=== PATIENT | male | born 1965 | race Caucasian/White ===

== ENCOUNTER 2021-11-25 09:33 | Outpatient (CLI) | payer OTHER, SELFPAY ==
[2021-11-25 19:16] LABS: Basophils Absolute Auto 0.1 K/mm3 (0.0-0.1); Basophils Percent Auto 0.9 % (0.2-1.2); Eosinophils Absolute Auto 0.3 K/mm3 (0-0.3); Hematocrit 48.4 % (42.0-52.0); Hemoglobin 15.5 g/dL (14.0-18.0); Immature Granulocyte Percent A 0.9 % (0-0.5); Lymphocytes Absolute Auto 2.25 K/mm3 (0.9-3.2); Lymphocytes Percent Auto 20.7 % (18.3-44.2); Mean Corpuscular Hemoglobin 30.9 pg (26-34); Mean Corpuscular Volume 96.6 fl (80-100); Mean Platelet Volume 11.3 fl (7.4-10.4); Monocytes Absolute Auto 0.9 K/mm3 (0.1-0.6); Monocytes Percent Auto 8.5 % (2.6-8.5); Neutrophils Absolute Auto 7.2 K/mm3 (1.3-6.7); Platelet Count Result 313 k/mm3 (150-375); Red Blood Count 5.01 M/mm3 (4.6-6.20); Red Cell Distribution Width 13.1 % (11.5-14.5); White Blood Count 10.9 K/mm3 (4.5-10.0)
[2021-11-25 19:32] LABS: Alanine Aminotransferase 38 U/L (6-50); Albumin Level 4.3 g/dL (3.5-5.1); Alkaline Phosphatase 141 U/L (38-126); Anion Gap 11 mmol/L (8-16); Aspartate Amino Transferase 89 U/L (17-59); Bilirubin,Total 0.8 mg/dL (0.2-1.3); Blood Urea Nitrogen 39 mg/dL (9-20); Calcium 9.7 mg/dL (8.4-10.2); Carbon Dioxide 28 mmol/L (22-30); Chloride 95 mmol/L (98-107); Cholesterol 100 mg/dL (0-200); Estimated Glomerular Filt Rate 52; Glucose 344 mg/dL (65-110); HDL Direct 27 mg/dL; Potassium 4.2 mmol/L (3.4-5.0); Sodium 134 mmol/L (137-145); Triglycerides 180 mg/dL (<150)
[2021-11-25 19:57] LABS: Creatinine Urine 69.6 mg/dL
[2021-11-25 19:59] LABS: Microalbumin Urine Random 12.5 mg/L (0-16.7)
[2021-11-25 20:00] LABS: Prostate Specific Antigen 0.5 ng/mL (< OR = 4.0)
[2021-11-25 20:13] LABS: Hemoglobin A1C 11.4 % (<5.7)
[2021-11-25 20:35] LABS: LDL Cholesterol Direct < 30 mg/dL
== END 2021-11-25 09:34 | disposition home or self-care (01) ==
PROVIDERS: PCP Family Medicine; Visit Provider Family Medicine
DX: Z12.5 Encounter for screening for malignant neoplasm of prostate (principal); E11.9 Type 2 diabetes mellitus without complications; Z00.00 Encounter for general adult medical examination without abnormal findings
CPT/HCPCS: 36415; 80053; 80061; 82043; 83036; 84153; 85025; G0103

== ENCOUNTER 2021-12-08 10:41 | Outpatient (CLI) | payer OTHER, SELFPAY | END 2021-12-08 10:42 | disposition home or self-care (01) | LOC: ANHBWCAUD 10:42 | PROVIDERS: PCP Family Medicine; Visit Provider Family Medicine | DX: H90.3 Sensorineural hearing loss, bilateral (principal) | CPT/HCPCS: 92557; 92567 ==

== ENCOUNTER 2022-03-01 10:09 | Outpatient (CLI) | payer OTHER, SELFPAY ==
[2022-03-01 18:51] LABS: Alanine Aminotransferase 28 U/L (6-50); Albumin Level 4.2 g/dL (3.5-5.1); Alkaline Phosphatase 89 U/L (38-126); Anion Gap 13 mmol/L (8-16); Aspartate Amino Transferase 76 U/L (17-59); Bilirubin,Total 0.8 mg/dL (0.2-1.3); Blood Urea Nitrogen 23 mg/dL (9-20); Calcium 9.2 mg/dL (8.4-10.2); Carbon Dioxide 29 mmol/L (22-30); Chloride 103 mmol/L (98-107); Estimated Glomerular Filt Rate > 60; Glucose 182 mg/dL (65-110); Potassium 4.2 mmol/L (3.4-5.0); Sodium 145 mmol/L (137-145)
[2022-03-01 18:58] LABS: Hemoglobin A1C 8.2 % (<5.7)
[2022-03-01 19:13] LABS: Creatinine Urine 76.6 mg/dL
[2022-03-01 19:17] LABS: MALB Creatinine Ratio 31.3 mg/g (0-30)
[2022-03-01 19:49] LABS: Hepatitis B Surface Antigen Negative (Negative)
[2022-03-01 19:55] LABS: HAV RESULT Negative (Negative); Hepatitis B Core IgM Result Negative (Negative)
[2022-03-01 20:06] LABS: Hepatitis C Virus Antibody Negative (Negative)
== END 2022-03-01 10:10 | disposition home or self-care (01) ==
PROVIDERS: PCP Family Medicine; Visit Provider Family Medicine
DX: E11.9 Type 2 diabetes mellitus without complications (principal); R74.8 Abnormal levels of other serum enzymes
CPT/HCPCS: 36415; 80048; 80074; 80076; 82043; 83036

== ENCOUNTER 2022-06-02 09:02 | Outpatient (CLI) | payer OTHER, SELFPAY ==
--- NOTE | ~2022-06-02 | XR_ITS ---
XR shoulder LT min 2V 06/02/2022 09:26 Indication: Left shoulder pain Procedure: 4 views left shoulder Comparison: No prior studies for comparison. Findings: There is mild osteoarthritis of the left shoulder. Normal mineralization. No fracture or tr aumatic malalignment. No significant soft tissue abnormality. No foreign bodies. Impression: 1: Mild polyarticular osteoarthritis of the left shoulder. Reviewed, dictated and finalized at location A. [facility] PLANNING DIRECTOR Impression: 1: Mild polyarticular osteoarthritis of the left shoulder.
[2022-06-02 20:51] LABS: Creatinine Urine 101.2 mg/dL
[2022-06-02 20:54] LABS: MALB Creatinine Ratio 47.2 mg/g (0-30); Microalbumin Urine Random 47.8 mg/L (0-16.7)
[2022-06-02 21:10] LABS: Alanine Aminotransferase 31 U/L (6-50); Albumin Level 4.5 g/dL (3.5-5.1); Alkaline Phosphatase 105 U/L (38-126); Anion Gap 7 mmol/L (8-16); Aspartate Amino Transferase 77 U/L (17-59); Bilirubin,Total 0.7 mg/dL (0.2-1.3); Blood Urea Nitrogen 26 mg/dL (9-20); Calcium 9.2 mg/dL (8.4-10.2); Carbon Dioxide 29 mmol/L (22-30); Chloride 101 mmol/L (98-107); Estimated Glomerular Filt Rate 57; Glucose 160 mg/dL (65-110); Potassium 4.1 mmol/L (3.4-5.0); Sodium 137 mmol/L (137-145)
== END 2022-06-02 09:03 | disposition home or self-care (01) ==
LOC: ANHBWCLAB 09:03
PROVIDERS: PCP Family Medicine; Visit Provider Family Medicine
DX: E11.9 Type 2 diabetes mellitus without complications (principal); M19.012 Primary osteoarthritis, left shoulder
CPT/HCPCS: 36415; 73030; 80053; 82043; 83036

== ENCOUNTER 2022-08-30 09:43 | Outpatient (CLI) | payer OTHER, SELFPAY ==
[2022-08-30 22:08] LABS: Alanine Aminotransferase 37 U/L (6-50); Albumin Level 4.3 g/dL (3.5-5.1); Alkaline Phosphatase 120 U/L (38-126); Anion Gap 8 mmol/L (8-16); Aspartate Amino Transferase 45 U/L (17-59); Bilirubin,Total 0.7 mg/dL (0.2-1.3); Blood Urea Nitrogen 25 mg/dL (9-20); Calcium 9.2 mg/dL (8.4-10.2); Carbon Dioxide 26 mmol/L (22-30); Chloride 107 mmol/L (98-107); Estimated Glomerular Filt Rate 57; Glucose 179 mg/dL (65-110); Potassium 4.3 mmol/L (3.4-5.0); Sodium 141 mmol/L (137-145)
[2022-08-30 23:37] LABS: Hemoglobin A1C 7.2 % (<5.7)
== END 2022-08-30 09:44 | disposition home or self-care (01) ==
LOC: ANHBWCLAB 09:43
PROVIDERS: PCP Family Medicine; Visit Provider Family Medicine
DX: E11.9 Type 2 diabetes mellitus without complications (principal)
CPT/HCPCS: 36415; 80053; 83036

== ENCOUNTER 2023-03-15 09:31 | Outpatient (CLI) | payer OTHER, SELFPAY ==
[2023-03-15 19:19] LABS: Alanine Aminotransferase 30 U/L (6-50); Albumin Level 4.4 g/dL (3.5-5.1); Alkaline Phosphatase 90 U/L (38-126); Anion Gap 12 mmol/L (8-16); Aspartate Amino Transferase 37 U/L (17-59); Bilirubin,Total 0.8 mg/dL (0.2-1.3); Blood Urea Nitrogen 31 mg/dL (9-20); Carbon Dioxide 25 mmol/L (22-30); Chloride 103 mmol/L (98-107); Cholesterol 121 mg/dL (0-200); Estimated Glomerular Filt Rate > 60; Glucose 219 mg/dL (65-110); HDL Direct 34 mg/dL; Potassium 4.6 mmol/L (3.4-5.0); Sodium 140 mmol/L (137-145); Triglycerides 133 mg/dL (<150)
[2023-03-15 19:30] LABS: LDL Cholesterol Direct 60 mg/dL
[2023-03-15 19:51] LABS: Prostate Specific Antigen 0.6 ng/mL (< OR = 4.0)
[2023-03-15 19:56] LABS: Hemoglobin A1C 7.5 % (<5.7)
[2023-03-15 20:26] LABS: Creatinine Urine 79.3 mg/dL
[2023-03-15 20:30] LABS: Microalbumin Urine Random 13.5 mg/L (0-16.7)
== END 2023-03-15 09:32 | disposition home or self-care (01) ==
LOC: ANHBWCLAB 09:32
PROVIDERS: PCP Nurse Practitioner Adult Health; Visit Provider Nurse Practitioner Adult Health
DX: E11.9 Type 2 diabetes mellitus without complications (principal); Z12.5 Encounter for screening for malignant neoplasm of prostate
CPT/HCPCS: 36415; 80053; 80061; 82043; 83036; 84153; G0103

== ENCOUNTER 2025-01-02 09:43 | Outpatient (CLI) | payer OTHER, SELFPAY ==
--- OUTSIDE RECORDS SUMMARY | 2025-01-02 10:40 | XMS_ITS | Clinical Summary ---
Author Organization [facility] Medical Office Building A Address [address] [place] [address] Care Team Providers Care Air Quality Chemist Name Role Phone Unavailable Primary Care Provider Unavailabl e Allergies No known active allergies Medications lancets (ONETOUCH DELICA LANCETS) 33 gauge misc test once daily 90 each 3 10/30/2014 Active blood-glucose meter (ONETOUCH VERIO SYSTEM) misc test once daily 1 each 0 10/30/2014 Active flash glucose sensor (FREESTYLE MIGUEL 14 DAY SENSOR) kit Test blood sugars for the 8 times daily 1 kit 3 08/31/2018 Active ONETOUCH VERIO strip TEST ONCE DAILY 100 each 3 10/06/2018 Active aspirin 81 mg enteric coated tablet Take 81 mg by mouth daily Active lisinopril-hydro CHLOROthiazide (ZESTORETIC) 10-12.5 mg per tabletIndication s:hypertension TAKE 1 TABLET BY MOUTH DAILY 30 tablet 11 01/19/2021 Active TOUJEO 300 unit/mL (1.5 mL) pen for injection INJECT 20 UNITS UNDER THE SKIN DAILY AFTER DINNER 4.5 mL 05/25/2021 Active Jardiance 25 mg tablet TAKE ONE (1) TABLET (25 MG TOTAL) BY MOUTH DAILY 30 tablet 3 07/28/2021 Active metFORMIN XR (GLUCOPHAGE XR) 750 mg 24 hr tablet TAKE ONE TABLET BY MOUTH TWO TIMES a DAY 60 tablet 11 08/16/2021 Active atorvastatin (LIPITOR) 20 mg tablet TAKE ONE TABLET BY MOUTH DAILY 30 tablet 1 09/15/2021 Active Active Problems Problem Noted Date Diagnosed Date Hx of colonic polyps 09/07/2019 Overview (09/07/2019): Added automatically from request for surgery [id number] History of left heart catheterization 07/31/2019 Hyperlipidemia associated with type 2 diabetes m ellitus 01/15/2019 Hypertension associated with diabetes 01/15/2019 Mitral valve prolapse 01/15/2019 Family history of premature coronary artery dise ase 01/15/2019 Mixed hyperlipidemia 01/14/2017 Essential hypertension 01/14/2017 Type 2 diabetes mellitus 09/01/2013 Overview (07/23/2016): DMII WO CMP NT ST UNCNTR Resolved Problems Problem Noted Date Diagnosed Date Resolved Date Equivocal stress test 01/15/20192019 Chest pain 01/15/2019 07/31/2019 Abnormal cardiovascular stress test 01/15/2019 07/31/2019 Overview (01/15/2019): Added automatically from request for surgery [id number] Pain in shoulder 04/05/2016 07/31/2019 Benign hypertension 09/01/2013 01/15/20 17 Overview (07/21/2016): BENIGN HYPERTENSION Immunizations Immunization Administration Dates Next Due Influenza, Quadrivalent, Lorena l Culture-based MDCK, Antibiotic Free, Intramuscular 02/15/2019 Influenza, Quadrivalent, Spl it, Preservative Free, Intramuscular 02/12/2018,12/31/2015 Influenza, Trivalent, IM (MDV) 12/30/2016,2013,02/21/2009 Influenza, Unspecified 01/09/2020,2019(Deferred: Patient Refused),02/15/2019,12/01/2018(Deferre d: Patient Refused),12/29/2016 Moderna SARS-CoV-2 Monovalen t Vaccination (12+ YRS) 07/14/2020,06/15/2020 Pneumococcal Conjugate PCV 13 10/01/2014 Pneumococcal Polysaccharide PPV23 04/29/2020,09/2008 ZOSTER Recombinant 01/12/2019,10/06/2018 Surgical History Surgery Date Site/Laterality Comments APPENDECTOMY 04/18/1992 - 04/17/1993 Appendectomy UMBILICAL HERNIA REPAIR Hernia repair, umbilical COLONOSCOPY 10/16/2014 - 11/15/2014 Medical History Medical History Date Comments Hypercholesterolemia High choles terol; Comments: JDR 10/02/2014 - Type 2 diabetes mellitus Diabete s type 2; Comments: JDR 10/02/2014 - Colon polyp Hypertension Family History Medical History Relation Name Comments Hypertension Father 2 Hypertension; Other Mother 2 Alive and well; Relation Name Status Comments Father 1 Alive Father 2 Mother 1 Alive Mother 2 Social History Tobacco Use Types Packs/Day Years Used Date Smoking Tobacco: Never Smokeless Tobacco: Never Alcohol Use Standard Drinks/Week Comments No 0 (1 standard drink = 0.6 oz pur e alcohol) PHQ-2 Answer Date Recorded PHQ-2 Total Score (If total score is 3 or more points, staff should administer the PHQ-9) 0 04/29/2020 Sex and Gender Information Value Date Recorded Sex Assigned at Not on file Legal Sex Male 11:55 PM JEWELRY RACKER Gender Identity Not on file Sexual Orientation Not on file Obstetrics History Last Filed Vital Signs Vital Sign Reading Time Taken Comments Blood Pressure 120/72 04/29/2020 8:01 AM JEWELRY RACKER Pulse 60 04/29/2020 8:01 AM JEWELRY RACKER Temperature 37.1 C (98.7 F) 09/20/2019 8:45 AM CDT Respiratory Rate 20 04/29/2020 8:01 AM JEWELRY RACKER Oxygen Saturation 100% 09/20/2019 8:45 AM CDT Inhaled Oxygen Concentration - - Weight 95.3 kg (210 lb) 01/15/2021 9:50 AM CDT Height 185.4 cm (6' 1) 01/15/2021 9:50 AM CDT Body Mass Index 27.71 01/15/2021 9:50 AM CDT Plan of Treatment Not on file Medical Devices Implanted Type Area Manufacturing Engineer Paint Device Identifier Shelf Expiration Date Model / Serial / Lot Kontron [id number] Device Closure Angio-Seal Vip Bondek-Plus Polyglyd L70 Cm Od6 Fr Odsec.035 In Vascular - [id number] Implanted:Qty: 1 on 01/18/2019 by Thomas Rosenthal MD at [facility] [employer] [id number] / / Insurance [facility] CHOICE PLUS [facility] HMO/PPO Address: [address] [address] [place] [address] [id number] [place] [address] [facility] [facility] HMO/PPO Address: [address] [address] [place] [address] Advance Directives For more information, please contact: [phone] * Full Code (Latest Code Status on File) Date Activated Date Inactivated Comments 09/20/2019 7:16 AM 09/20/2019 1:01 PM * Full Code Date Activated Date Inactivated Comments 09/20/2019 7:16 AM 09/20/2019 7:16 AM
== END 2025-01-02 09:44 | disposition home or self-care (01) ==
LOC: ANHBWCAUD 09:44
PROVIDERS: PCP Nurse Practitioner Adult Health; Visit Provider Otolaryngology
DX: H90.3 Sensorineural hearing loss, bilateral (principal); H74.8X1 Other specified disorders of right middle ear and mastoid; H93.13 Tinnitus, bilateral
CPT/HCPCS: 92557; 92567

== ENCOUNTER 2025-03-11 07:39 | Outpatient (CLI) | payer OTHER, SELFPAY ==
--- OUTSIDE RECORDS SUMMARY | 2025-03-11 07:47 | XMS_ITS | Clinical Summary ---
Author Organization [facility] Medical Office Building A Address [address] [place] [address] Care Team Providers Care Parts Identifier Name Role Phone Unavailable Primary Care Provider [...] (09/07/2019): Added automatically from request for surgery [id number] History of left heart catheterization 07/31/2019 Hyperlipidemia [...] (01/15/2019): Added automatically from request for surgery [id number] Pain in shoulder 04/05/2016 07/31/2019 Benign hypertension [...] on file Legal Sex Male 11:55 PM MINE GEOLOGIST Gender Identity Not on file Sexual Orientation Not on file Last Filed Vital Signs Vital Sign Reading Time Taken Comments Blood Pressure 120/72 04/29/2020 8:01 AM MINE GEOLOGIST Pulse 60 04/29/2020 8:01 AM MINE GEOLOGIST Temperature 37.1 C (98.7 F) 09/20/2019 8:45 AM CDT Respiratory Rate 20 04/29/2020 8:01 AM MINE GEOLOGIST Oxygen Saturation 100% 09/20/2019 8:45 AM CDT Inhaled Oxygen Concentration - - Weight 95.3 kg (210 lb) 01/15/2021 9:50 AM CDT Height 185.4 cm (6' 1) 01/15/2021 9:50 AM CDT Body Mass Index 27.71 01/15/2021 9:50 AM CDT Plan of Treatment Not on file Medical Devices Implanted Type Area Computer Typesetter Device Identifier Shelf Expiration Date Model / Serial / Lot PFSweb [id number] Device Closure Angio-Seal Vip Bondek-Plus Polyglyd L70 Cm Od6 Fr Odsec.035 In Vascular - [id number] Implanted:Qty: 1 on 01/18/2019 by Thomas Rosenthal MD at [facility] [employer] [id number] / / Insurance [facility] CHOICE PLUS [id number] [place] [address] CHOICE PLUS [place] [id number] Advance Directives For more information, please contact: [phone] * Full Code (Latest Code Status on File) Date Activated Date Inactivated Comments 09/20/2019 7:16 AM 09/20/2019 1:01 PM * Full Code Date Activated Date Inactivated Comments 09/20/2019 7:16 AM 09/20/2019 7:16 AM
[2025-03-11 19:00] LABS: Alanine Aminotransferase 30 U/L (6-50); Albumin Level 4.2 g/dL (3.5-5.1); Alkaline Phosphatase 116 U/L (38-126); Anion Gap 8 mmol/L (4-12); Aspartate Amino Transferase 74 U/L (17-59); Bilirubin,Total 0.7 mg/dL (0.2-1.3); Blood Urea Nitrogen 40 mg/dL (9-20); Calcium 9.8 mg/dL (8.4-10.2); Carbon Dioxide 25 mmol/L (22-30); Chloride 103 mmol/L (98-107); Cholesterol 110 mg/dL (0-200); Estimated Glomerular Filt Rate 46; Glucose 220 mg/dL (65-110); HDL Direct 35 mg/dL; Potassium 5.1 mmol/L (3.4-5.0); Sodium 136 mmol/L (137-145); Total Protein 7.2 g/dL (6.3-8.2); Triglycerides 168 mg/dL (<150)
[2025-03-11 19:09] LABS: Hemoglobin A1C 8.4 % (<5.7)
[2025-03-11 19:22] LABS: MALB Creatinine Ratio 20.0 mg/g (0-30)
[2025-03-11 19:37] LABS: Prostate Specific Antigen 0.7 ng/mL (< OR = 4.0)
== END 2025-03-11 07:40 | disposition home or self-care (01) ==
PROVIDERS: PCP Nurse Practitioner Adult Health; Visit Provider Nurse Practitioner Adult Health
DX: E11.9 Type 2 diabetes mellitus without complications (principal); Z12.5 Encounter for screening for malignant neoplasm of prostate
CPT/HCPCS: 36415; 80053; 80061; 82043; 82565; 83036; 84153; G0103

== ENCOUNTER 2025-03-15 10:35 | Emergency (ER) | payer OTHER, SELFPAY ==
--- OUTSIDE RECORDS SUMMARY | 2025-03-15 10:38 | XMS_ITS | Clinical Summary ---
Author Organization [facility] Medical Office Building A Address [address] [place] [address] Care Team Providers Care Stocking Inspector Name Role Phone Unavailable Primary Care Provider [...] (09/07/2019): Added automatically from request for surgery [id number] History of left heart catheterization 07/31/2019 Hyperlipidemia [...] (01/15/2019): Added automatically from request for surgery [id number] Pain in shoulder 04/05/2016 07/31/2019 Benign hypertension [...] on file Legal Sex Male 11:55 PM ART PROFESSOR Gender Identity Not on file Sexual Orientation Not on file Last Filed Vital Signs Vital Sign Reading Time Taken Comments Blood Pressure 120/72 04/29/2020 8:01 AM ART PROFESSOR Pulse 60 04/29/2020 8:01 AM ART PROFESSOR Temperature 37.1 C (98.7 F) 09/20/2019 8:45 AM CDT Respiratory Rate 20 04/29/2020 8:01 AM ART PROFESSOR Oxygen Saturation 100% 09/20/2019 8:45 AM CDT Inhaled Oxygen Concentration - - Weight 95.3 kg (210 lb) 01/15/2021 9:50 AM CDT Height 185.4 cm (6' 1) 01/15/2021 9:50 AM CDT Body Mass Index 27.71 01/15/2021 9:50 AM CDT Plan of Treatment Not on file Medical Devices Implanted Type Area Account Resolution Expert Device Identifier Shelf Expiration Date Model / Serial / Lot [employer] [id number] Device Closure Angio-Seal Vip Bondek-Plus Polyglyd L70 Cm Od6 Fr Odsec.035 In Vascular - [id number] Implanted:Qty: 1 on 01/18/2019 by Thomas Rosenthal MD at [facility] [employer] [id number] / / Insurance [facility] CHOICE PLUS [facility] HMO/PPO Address: [address] [address] [place] [address] [id number] [place] [address] CHOICE PLUS [facility] HMO/PPO Address: [address] [address] [place] [phone] Advance Directives For more information, please contact: [phone] * Full Code (Latest Code Status on File) Date Activated Date Inactivated Comments 09/20/2019 7:16 AM 09/20/2019 1:01 PM * Full Code Date Activated Date Inactivated Comments 09/20/2019 7:16 AM 09/20/2019 7:16 AM
[2025-03-15 10:44] VITALS: BP 91/54; PULSE 107; RESP 16; TEMP 36.2; O2SAT 100
--- NOTE | 2025-03-15 11:17 | ED.LOWEXIN ---
HPI - Extremity Injury (Lower) General Chief Complaint: Extremity Injury, Lower Stated Complaint: left foot Time Seen by Provider: 03/15/25 11:18 Source: patient Mode of arrival: ambulatory Limitations: no limitations History of Present Illness HPI Narrative: 59 yo M presents with c/o pain to bottom of L foot, bodyaches and fatigue. Has callus of L foot scrapped by podiatry. Has been watching area on foot due to slow healing. Concerned for infection. Podiatry office not open today. All systems reviewed and negatve except as noted above. Related Data Allergies Allergy/AdvReac Type Severity Reaction Status Date / Time No Known Drug Allergies Allergy Unknown Verified 03/12/25 13:19 [facility] Family History Family History Mother Diabetes mellitus Sibling Diabetes mellitus Hypertension Heart disease Grandparent Diabetes mellitus Social History Social History Smoking status: Never smoker Alcohol intake: never Lack of Transportation: No Lack of Food: Never True Current Housing: I Have Housing Concerned About Future Housing: No Difficulty Paying Gas/Electric Bills: No Difficulty Paying for Meds: No Currently Unemployed: No Education: High School Diploma/GED Difficulty w/ Childcare or Family Care: No Living arrangements: with family Occupation/Education: retired Gender identity (if verbalized by the patient): Male Agree to blood products: Yes Comments At time of signature, agree with nursing past medical, surgical, social and family history. There is no relevant family history pertinent to the presenting complaint. Exam Narrative: GENERAL: This is a well-nourished, well-developed patient, in no apparent distress. HEAD: normocephalic, atraumatic. EYES: PERRL. Sclera clear/white. Vision is grossly intact. EARS: External ears normal NOSE: External nose normal NECK: Neck supple, non-tender without lymphadenopathy, masses or thyromegaly. CARDIOVASCULAR: Regular rate and rhythm without murmurs, gallops, or rubs. RESPIRATORY: Clear to auscultation. Breath sounds equal bilaterally. No wheezes, rales, or rhonchi. SKIN: warm, Dry, intact with no suspicious lesions or rash, good texture and turgor. NEURO: awake, alert, and oriented to person, place and time. There were no obvious focal neurologic abnormalities. EXTREMITIES: No joint tenderness, effusion, or edema noted. abscess to plantar, lateral aspect L foot, draining. tender on palpation Course Course Level of Care: Express Care Visit Vital Signs Vital signs: Vital Signs Temperature 36.2 C L 03/15/25 10:44 Pulse Rate 107 H 03/15/25 10:44 Respiratory Rate 16 03/15/25 10:44 Blood Pressure 91/54 L 03/15/25 10:44 Pulse Oximetry 100 03/15/25 10:44 Oxygen Delivery Room Air 03/15/25 10:44 Temperature 36.2 C L 03/15/25 10:44 Pulse Rate 107 H 03/15/25 10:44 Respiratory Rate 16 03/15/25 10:44 Blood Pressure 91/54 L 03/15/25 10:44 Pulse Oximetry 100 03/15/25 10:44 Oxygen Delivery Room Air 03/15/25 10:44 Reviewed, BP rechecked by BALL SHAGGER 114/72 Procedures Other Procedure Procedure 1: Other Procedure: abscess to L foot cleaned, manually drained, culture obtained MDM - Extremity Injury (Lower) MDM Narrative Medical decision making narrative: will start clindamycin for L foot infection. Recommend follow up with podiatry. pt is well appearing, nontoxic. Discharge Plan Discharge Clinical Impression: Abscess of left foot Patient Disposition: Home Condition: Stable Instructions: Antibiotic Form, Abscess (ED) Additional Instructions: Take antibiotic as prescribed until gone. Follow up with rock crushing machine operator at next available appointment. For any worsening of symptoms go to the ER. Patient Language: Eritrean Prescriptions: New clindamycin HCl [Cleocin HCl] 300 mg capsule 300 mg PO QID 10 Days Qty: 40 0RF No Action (DME) blood-glucose meter Kit See Rx Instructions .Route Qty: 1 0RF Rx Instructions: As directed, three times a day (DME) OneTouch Verio test strips Strip See Rx Instructions .Route Qty: 300 11RF Rx Instructions: As directed, tid lisinopril-hydrochlorothiazide 10-12.5 mg tablet See Rx Instructions .ROUTE .COMPLEX Qty: 90 3RF Dose Instruction: TAKE ONE (1) TABLET BY MOUTH DAILY Rx Instructions: TAKE ONE (1) TABLET BY MOUTH DAILY metformin 750 mg tablet extended release 24 hr See Rx Instructions .ROUTE .COMPLEX Qty: 180 3RF Dose Instruction: TAKE ONE (1) TABLET BY MOUTH TWICE DAILY Rx Instructions: TAKE ONE (1) TABLET BY MOUTH TWICE DAILY atorvastatin 20 mg tablet See Rx Instructions .ROUTE .COMPLEX Qty: 90 3RF Dose Instruction: TAKE ONE (1) TABLET BY MOUTH DAILY Rx Instructions: TAKE ONE (1) TABLET BY MOUTH DAILY Ozempic 1 mg/dose (4 mg/3 mL) pen injector See Rx Instructions .ROUTE .COMPLEX Qty: 3 3RF Dose Instruction: 1 MG (0.75 ML) SUBCUTANEOUSLY WEEKLY Rx Instructions: 1 MG (0.75 ML) SUBCUTANEOUSLY WEEKLY Jardiance 25 mg tablet See Rx Instructions .ROUTE .COMPLEX Qty: 90 3RF Dose Instruction: TAKE ONE (1) TABLET BY MOUTH DAILY Rx Instructions: TAKE ONE (1) TABLET BY MOUTH DAILY Follow-up/Referrals: Olga Lidia Martin APRN [Primary Care Provider, Family Practice] Time of Disposition: 11:30
== END 2025-03-15 11:38 | disposition home or self-care (01) ==
PROVIDERS: Emergency Provider Nurse Practitioner Family; PCP Nurse Practitioner Adult Health
DX: L02.612 Cutaneous abscess of left foot (principal)
CPT/HCPCS: 87070; 87077; 87147; 87186; 87205; 99213; G0463

== ENCOUNTER 2025-04-06 10:05 | Emergency (ER) | payer OTHER, SELFPAY ==
--- OUTSIDE RECORDS SUMMARY | 2025-04-06 10:09 | XMS_ITS | Clinical Summary ---
Author Organization [facility] Medical Office Building A Address [address] [place] [address] Care Team Providers Care Customer Engagement Analyst Name Role Phone Unavailable Primary Care Provider [...] (09/07/2019): Added automatically from request for surgery [id number] History of left heart catheterization 07/31/2019 Hyperlipidemia [...] (01/15/2019): Added automatically from request for surgery [id number] Pain in shoulder 04/05/2016 07/31/2019 Benign hypertension [...] on file Legal Sex Male 11:55 PM CUSTOMER SUPPORT COORDINATOR Gender Identity Not on file Sexual Orientation Not on file Last Filed Vital Signs Vital Sign Reading Time Taken Comments Blood Pressure 120/72 04/29/2020 8:01 AM CUSTOMER SUPPORT COORDINATOR Pulse 60 04/29/2020 8:01 AM CUSTOMER SUPPORT COORDINATOR Temperature 37.1 C (98.7 F) 09/20/2019 8:45 AM CDT Respiratory Rate 20 04/29/2020 8:01 AM CUSTOMER SUPPORT COORDINATOR Oxygen Saturation 100% 09/20/2019 8:45 AM CDT Inhaled Oxygen Concentration - - Weight 95.3 kg (210 lb) 01/15/2021 9:50 AM CDT Height 185.4 cm (6' 1) 01/15/2021 9:50 AM CDT Body Mass Index 27.71 01/15/2021 9:50 AM CDT Plan of Treatment Not on file Medical Devices Implanted Type Area Freight Separator Device Identifier Shelf Expiration Date Model / Serial / Lot [employer] [id number] Device Closure Angio-Seal Vip Bondek-Plus Polyglyd L70 Cm Od6 Fr Odsec.035 In Vascular - [id number] Implanted:Qty: 1 on 01/18/2019 by Thomas Rosenthal MD at [facility] [employer] [id number] / / Insurance [facility] CHOICE PLUS [facility] HMO/PPO Address: [address] [address] [place] [address] [phone] [place] [address] CHOICE PLUS [facility] HMO/PPO Address: [address] [address] [place] [id number] Advance Directives For more information, please contact: [phone] * Full Code (Latest Code Status on File) Date Activated Date Inactivated Comments 09/20/2019 7:16 AM 09/20/2019 1:01 PM * Full Code Date Activated Date Inactivated Comments 09/20/2019 7:16 AM 09/20/2019 7:16 AM
[2025-04-06 10:13] VITALS: BP 128/69; PULSE 96; RESP 20; TEMP 36.3; O2SAT 100
--- NOTE | 2025-04-06 10:33 | ED.EXTPRO ---
HPI - Extremity Problem General Chief complaint: Extremity Problem,Nontraumatic Stated complaint: Left Foot Swelling Time Seen by Provider: 04/06/25 10:34 Source: patient, RN notes reviewed and old records reviewed Mode of arrival: ambulatory Limitations: no limitations History of Present Illness HPI Narrative: 59 year old male presents to [facility] care with complaints of left foot redness and swelling noted to left foot which he noted this morning. Patient was seen in the express care on the due to having callous on the bottom of his left foot lateral aspect that had been shaved by his concierge manager which was having some purulent drainage and was placed on Clindamycin which he completed. Patient reports that he had been putting a band aide on the callous area which quit draining about 5 days ago. He has scab area now on the lateral top of left foot which was from band aide with no open skin area or drainage. Patient reports no pain to his left foot or any fevers. MD Complaint: extremity swelling and other (swelling and red to the top of foot laterally) Onset (ago): day(s) (noted this morning) Severity scale (1-10): 3 Related Data Allergies Allergy/AdvReac Type Severity Reaction Status Date / Time No Known Drug Allergies Allergy Unknown Verified 04/06/25 10:31 Review of Systems Review of Systems: CONSTITUTIONAL: Denies fever, chills, or sweats. EYES: Denies visual changes, redness, or discharge. ENT: Denies rhinorrhea, congestion, sore throat, or otalgia. CARDIOVASCULAR: Denies chest pain, palpitations, or edema. RESPIRATORY: Denies cough or dyspnea. GASTROINTESTINAL: Denies abdominal pain, nausea, vomiting, or diarrhea. GENITOURINARY: Denies dysuria or hematuria. SKIN: Denies rash or itching.Patient has callous to the lateral aspect of his left foot plantar region that has not been draining for the past 5 days and scabbed are to dorsal lateral foot with no drainage, reports awoke this morning with his left foot red and with some swelling to lateral aspect of his left foot. Patient is diabetic does see concierge manager. MUSCULOSKELETAL: Denies back pain, joint pain, or myalgia. NEUROLOGIC: Denies headache, numbness, or weakness. PSYCHIATRIC: Denies anxiety or depression. All systems reviewed & are unremarkable except as noted in HPI and below PMFSH Past Medical History Medical History (Updated 04/08/25 @ 08:33 by Rosa Elena Wright APRN) Elevated serum cholesterol Type 2 diabetes mellitus HTN (hypertension) Family History Family History Mother Diabetes mellitus Sibling Diabetes mellitus Hypertension Heart disease Grandparent Diabetes mellitus Social History Social History Smoking status: Never smoker Alcohol intake: never Lack of Transportation: No Lack of Food: Never True Current Housing: I Have Housing Concerned About Future Housing: No Difficulty Paying Gas/Electric Bills: No Difficulty Paying for Meds: No Currently Unemployed: No Education: High School Diploma/GED Difficulty w/ Childcare or Family Care: No Living arrangements: with family Occupation/Education: retired Gender identity (if verbalized by the patient): Male Agree to blood products: Yes Comments At time of signature, agree with nursing past medical, surgical, social and family history. There is no relevant family history pertinent to the presenting complaint Exam Narrative: GENERAL: Well-appearing, well-nourished, and in no acute distress. HEAD: Normocephalic, atraumatic. EYES: PERRLA and EOMI. ENT: Nares clear, no rhinorrhea or epistaxis. Mucous membranes moist.TM's normal throat pink with no swelling or irritation NECK: Supple.no lymphadenopathy CHEST: Clear to auscultation. No respiratory distress. no cough or congestion SAO2 100% on room air HEART: Regular rate and rhythm. No murmur heard. Normal peripheral pulses. ABDOMEN: Soft, nontender, nondistended, normal active bowel sounds. EXTREMITIES: Normal range of motion. No edema. Exception noted to his left foot dorsal and lateral aspect which was noted to be red and swollen this morning. Patient received Clindamycin on 03/12/2025 for drainag callous to the lateral plantar aspect of his left foot which he completed with no drainage from site for 5 days, has scabbed area to dorsal lateral aspect of left foot from where he had band-devaughn coverage over callous with no drainage. Left dorsal lateral foot has some swelling and is red.denies any pain or any fevers No present drainage from callous area on plantar left lateral foot. SKIN: Warm, dry, no rash. NEURO: No focal deficits. Alert and oriented x3. Course Course Level of Care: Express Care Visit Vital Signs Vital signs: Vital Signs Temperature 36.3 C L 04/06/25 10:13 Pulse Rate 96 04/06/25 10:13 Respiratory Rate 20 04/06/25 10:13 Blood Pressure 128/69 04/06/25 10:13 Pulse Oximetry 100 04/06/25 10:13 Oxygen Delivery Room Air 04/06/25 10:13 Temperature 36.3 C L 04/06/25 10:13 Pulse Rate 96 04/06/25 10:13 Respiratory Rate 20 04/06/25 10:13 Blood Pressure 128/69 04/06/25 10:13 Pulse Oximetry 100 04/06/25 10:13 Oxygen Delivery Room Air 04/06/25 10:13 reviewed MDM MDM Narrative Medical decision making narrative: Patient awoke today with left foot red and swollen predominantly to the lateral aspect, Patient was treated on 03/12/2025 with Clindamycin for draining callous to the lateral plantar aspect of his left foot with no reported drainage from site for 5 days. now has small scabbed area to the dorsal lateral aspect of his left foot where patient states was from band-aide he had put over the callous with no drainage noted. Patient is appropriate for outpatient care and follow up with podiatry.Will treat with oral antibiotics wound care and Mupiricin ointment with no tape to skin Patient received anticipatory guidance and reasons to seek care in ED reviewed with patient voicing understanding. Differential Diagnosis Differential Diagnosis: Differential diagnostic considerations for skin/abscess/foreign body issues include abscess of skin or subcutaneous tissue, viral exanthem, dermatophytosis, urticaria, herpes zoster, allergic reaction to drug, cellulitis, eczema, insect bites, impetigo, contact dermatitis, vasculitis. Critical Care Time Critical Care Time Critical Care Time: No Discharge Plan Discharge Clinical Impression: Swelling of left foot, Erythema of foot Patient Disposition: Home Condition: Stable Instructions: Antibiotic Form, Foot Ulcers in a Person with Diabetes (ED) Additional Instructions: Soak left foot in warm soapy water rinse well and then apply Mupiricin ointment to callous and scab dorsal foot and cover with telfa and wrap with coban watch for increasing infection--redness, swelling, drainage Tylenol or Ibuprofen for any pain or fever follow up with PCP in 7-10 days for a wound check recheck if develop fever, chills, increasing symptom Go to the ER if your symptoms become worse of if ANY new symptoms develop Monitor for any fevers, chills or sweats Antibiotics as prescribed till completed Make follow up appointment for your concierge manager If your symptoms persist, change or worsen significantly before you can contact your personal physician then please, without delay, go to the emergency department for further evaluation. Follow-up with PCP in 7-10 days or sooner if needed Follow up with PCP soon in regards to your blood pressure which is elevated above threshold for referral. Blood pressure above 120/80 may indicate pre-hypertension. minimal systolic elevation 128/69 Patient Language: Russian Prescriptions: New cephalexin 500 mg capsule 500 mg PO Q8H Qty: 21 0RF Rx Instructions: take with food sulfamethoxazole-trimethoprim [Bactrim DS] 800-160 mg tablet 1 tablet PO Q12H Qty: 14 0RF mupirocin [Centany] 2 % ointment 1 applic topical BID Qty: 22 0RF Rx Instructions: left foot No Action (DME) blood-glucose meter Kit See Rx Instructions .Route Qty: 1 0RF Rx Instructions: As directed, three times a day (DME) OneTouch Verio test strips Strip See Rx Instructions .Route Qty: 300 11RF Rx Instructions: As directed, tid atorvastatin 20 mg tablet See Rx Instructions .ROUTE .COMPLEX Qty: 90 3RF Dose Instruction: TAKE ONE (1) TABLET BY MOUTH DAILY Rx Instructions: TAKE ONE (1) TABLET BY MOUTH DAILY Jardiance 25 mg tablet See Rx Instructions .ROUTE .COMPLEX Qty: 90 3RF Dose Instruction: TAKE ONE (1) TABLET BY MOUTH DAILY Rx Instructions: TAKE ONE (1) TABLET BY MOUTH DAILY lisinopril-hydrochlorothiazide 10-12.5 mg tablet See Rx Instructions .ROUTE .COMPLEX Qty: 90 3RF Dose Instruction: TAKE ONE (1) TABLET BY MOUTH DAILY Rx Instructions: TAKE ONE (1) TABLET BY MOUTH DAILY metformin 750 mg tablet extended release 24 hr See Rx Instructions .ROUTE .COMPLEX Qty: 180 3RF Dose Instruction: TAKE ONE (1) TABLET BY MOUTH TWICE DAILY Rx Instructions: TAKE ONE (1) TABLET BY MOUTH TWICE DAILY Ozempic 1 mg/dose (4 mg/3 mL) pen injector See Rx Instructions .ROUTE .COMPLEX Qty: 3 3RF Dose Instruction: 1 MG (0.75 ML) SUBCUTANEOUSLY WEEKLY Rx Instructions: 1 MG (0.75 ML) SUBCUTANEOUSLY WEEKLY Follow-up/Referrals: Olga Lidia Martin APRN [Primary Care Provider, [facility]] Time of Disposition: 10:58 Quality Bernadette Coma Scale Eyes: Open Verbal: Oriented and Alert Motor: Follows Commands Bernadette Coma Total Score: 15
== END 2025-04-06 11:09 | disposition home or self-care (01) ==
PROVIDERS: Emergency Provider Registered Nurse; PCP Nurse Practitioner Adult Health
DX: R22.42 Localized swelling, mass and lump, left lower limb (principal); L53.9 Erythematous condition, unspecified; E11.9 Type 2 diabetes mellitus without complications; Z79.84 Long term (current) use of oral hypoglycemic drugs; Z79.85 Long-term (current) use of injectable non-insulin antidiabetic drugs; I10 Essential (primary) hypertension; E78.00 Pure hypercholesterolemia, unspecified
CPT/HCPCS: 99213; G0463

== ENCOUNTER 2025-04-16 08:16 | Emergency (ER) | payer OTHER, SELFPAY ==
--- OUTSIDE RECORDS SUMMARY | 2025-04-16 08:22 | XMS_ITS | Clinical Summary ---
Author Organization [facility] Address [address] [place] [address] Care Team Providers Care Household Refrigeration Mechanic Name Role Phone Unavailable Primary Care Provider [...] (09/07/2019): Added automatically from request for surgery [id number] History of left heart catheterization 07/31/2019 Hyperlipidemia [...] (01/15/2019): Added automatically from request for surgery [id number] Pain in shoulder 04/05/2016 07/31/2019 Benign hypertension [...] on file Legal Sex Male 11:55 PM [employer] Gender Identity Not on file Sexual Orientation Not on file Last Filed Vital Signs Vital Sign Reading Time Taken Comments Blood Pressure 120/72 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 Pulse 60 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 Temperature 37.1 C (98.7 F) 09/20/2019 8:45 AM CDT Respiratory Rate 20 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 Oxygen Saturation 100% 09/20/2019 8:45 AM CDT Inhaled Oxygen Concentration - - Weight 95.3 kg (210 lb) 01/15/2021 9:50 AM CDT Height 185.4 cm (6' 1) 01/15/2021 9:50 AM CDT Body Mass Index 27.71 01/15/2021 9:50 AM CDT Plan of Treatment Not on file Medical Devices Implanted Type Area Road Monkey Device Identifier Shelf Expiration Date Model / Serial / Lot [employer] [id number] Device Closure Angio-Seal Vip [employer]-Plus Polyglyd L70 Cm Od6 Fr Odsec.035 In Vascular - [id number] Implanted:Qty: 1 on 01/18/2019 by Thomas Rosenthal MD at [facility] [employer] [id number] / / Insurance [facility] CHOICE PLUS [facility] HMO/PPO Address: [address] [address] [place] [id number] [place] [address] CHOICE PLUS [facility] HMO/PPO Address: [address] [address] [place] [id number] Advance Directives For more information, please contact: [phone] * Full Code (Latest Code Status on File) Date Activated Date Inactivated Comments 09/20/2019 7:16 AM 09/20/2019 1:01 PM * Full Code Date Activated Date Inactivated Comments 09/20/2019 7:16 AM 09/20/2019 7:16 AM
--- NOTE | 2025-04-16 08:24 | ED.EXTPRO ---
HPI - Extremity Problem General Chief complaint: Extremity Problem,Nontraumatic Stated complaint: left foot infection Time Seen by Provider: 04/16/25 08:24 Source: patient, RN notes reviewed and old records reviewed Mode of arrival: ambulatory Limitations: no limitations History of Present Illness HPI Narrative: 59-year-old male presents to the [facility] with worsening wound to the lateral left foot and callus to the plantar aspect 5th meta tarsal. Patient was seen on March 15 for same symptoms, was given clindamycin for 10 days. returned on 04/06, given Keflex and Bactrim. Patient states that since he was seen 10 days ago the wound has gotten worse. Patient's fasting blood sugar is currently 192. Patient has a history of diabetes. Related Data Allergies Allergy/AdvReac Type Severity Reaction Status Date / Time No Known Drug Allergies Allergy Unknown Verified 04/16/25 08:52 Review of Systems Review of Systems: All systems reviewed & are unremarkable except as noted in HPI and below Constitutional: Constitutional: Reports no additional constitutional complaints Musculoskeletal: Musculoskeletal: Reports as per HPI Integumentary/Breasts: Skin/Breast: Reports as per HPI, Reports skin ulcer and Reports sores PMFSH Past Medical History Medical History Elevated serum cholesterol Type 2 diabetes mellitus HTN (hypertension) Family History Family History Mother Diabetes mellitus Sibling Diabetes mellitus Hypertension Heart disease Grandparent Diabetes mellitus Social History Social History Smoking status: Never smoker Alcohol intake: never Lack of Transportation: No Lack of Food: Never True Current Housing: I Have Housing Concerned About Future Housing: No Difficulty Paying Gas/Electric Bills: No Difficulty Paying for Meds: No Currently Unemployed: No Education: High School Diploma/GED Difficulty w/ Childcare or Family Care: No Living arrangements: with family Occupation/Education: retired Gender identity (if verbalized by the patient): Male Agree to blood products: Yes Comments At the time of my signature, I reviewed and agree with the nursing past medical, surgical, social, and family history. There is no relevant family history pertinent to the patient complaint. Exam Const: General: cooperative, healthy appearing, comfortable, no acute distress, well developed, alert and well nourished Nutritional Appearance: well nourished Orientation/consciousness: patient oriented x3 Limitations: no limitations HENMT: Head: normal to inspection Eyes: General: appearance normal, both eyes and all related structures Alignment and Position: alignment normal Neck: Neck: normal visual inspection, full ROM, no lymphadenopathy and no meningeal signs Chest: Chest palpation & inspection: normal inspection of the chest Resp: Effort & Inspection: normal respiratory effort and able to speak in complete sentences Cardio: Rate: regular rate Skin: Wounds: wounds noted Other: 4.5x 4 cm indurated skin with surrounding erythema 7 x 7 cm. Open callus noted to the plantar aspect 5th metatarsal. Swelling noted. Discoloration in the surrounding foot is noted Neuro: General: patient oriented x3, gait normal, moves all extremities and no meningeal signs Cognition (Neuro): normal cognition Speech: normal speech Gait exam (Neuro): Normal gait present Extrem: General: normal to inspection, full ROM, capillary refill normal and normal gait Psych: Appearance: grossly normal and well kempt Mental Status: mental status grossly normal Speech and movement: Normal speech and movement present and Clear speech present Affect: normal affect Attitude: cooperative Course Course Level of Care: Express Care Visit Vital Signs Vital signs: reviewed Transfer Transfered to: [facility] Transportation: Other ( POV) Transfer rationale: patient with an unhealing foot ulcer, wound, has been on 2 rounds of antibiotics. Blood sugar is elevated at 192, fasting. Accepting physician: Spoke with Yusef LEE, Dr. Patino [facility] Narrative Medical decision making narrative: patient who is diabetic has had a infection to the left foot. Has been on 2 rounds of antibiotics with worsening of the wound. Sending for higher level of care transfer instructions reviewed with patient to go directly to the ER. All questions have been answered, and the patient deny any further questions Some parts of this dictation were generated by voice recognition software and may contain typographical and/or grammatical inaccuracies. Differential Diagnosis Differential Diagnosis: Foot ulceration, sepsis, osteomyelitis, diabetic foot infection Medical Records I have reviewed the following patient records and this information was taken into consideration when formulating the assessment and plan.: previous ER visits and previous clinic visits Lab Data [facility] Lab Attestation statement: I personally reviewed the patient's lab results. Lab results narrative: blood sugar 192 Labs: Reviewed Discharge Plan Discharge Clinical Impression: Diabetic infection of left foot Patient Disposition: Acute Care Hospital Condition: Stable Patient Language: Turkmen Prescriptions: No Action cephalexin 500 mg capsule 500 mg PO Q8H Qty: 21 0RF Rx Instructions: take with food sulfamethoxazole-trimethoprim [Bactrim DS] 800-160 mg tablet 1 tablet PO Q12H Qty: 14 0RF mupirocin [Centany] 2 % ointment 1 applic topical BID Qty: 22 0RF Rx Instructions: left foot (DME) blood-glucose meter Kit See Rx Instructions .Route Qty: 1 0RF Rx Instructions: As directed, three times a day (DME) OneTouch Verio test strips Strip See Rx Instructions .Route Qty: 300 11RF Rx Instructions: As directed, tid atorvastatin 20 mg tablet See Rx Instructions .ROUTE .COMPLEX Qty: 90 3RF Dose Instruction: TAKE ONE (1) TABLET BY MOUTH DAILY Rx Instructions: TAKE ONE (1) TABLET BY MOUTH DAILY Jardiance 25 mg tablet See Rx Instructions .ROUTE .COMPLEX Qty: 90 3RF Dose Instruction: TAKE ONE (1) TABLET BY MOUTH DAILY Rx Instructions: TAKE ONE (1) TABLET BY MOUTH DAILY lisinopril-hydrochlorothiazide 10-12.5 mg tablet See Rx Instructions .ROUTE .COMPLEX Qty: 90 3RF Dose Instruction: TAKE ONE (1) TABLET BY MOUTH DAILY Rx Instructions: TAKE ONE (1) TABLET BY MOUTH DAILY metformin 750 mg tablet extended release 24 hr See Rx Instructions .ROUTE .COMPLEX Qty: 180 3RF Dose Instruction: TAKE ONE (1) TABLET BY MOUTH TWICE DAILY Rx Instructions: TAKE ONE (1) TABLET BY MOUTH TWICE DAILY Ozempic 1 mg/dose (4 mg/3 mL) pen injector See Rx Instructions .ROUTE .COMPLEX Qty: 3 3RF Dose Instruction: 1 MG (0.75 ML) SUBCUTANEOUSLY WEEKLY Rx Instructions: 1 MG (0.75 ML) SUBCUTANEOUSLY WEEKLY Follow-up/Referrals: Olga Lidia Martin APRN [Primary Care Provider, Family Practice]
[2025-04-16 08:25] VITALS: BP 113/62; PULSE 99; RESP 18; TEMP 36.2; O2SAT 100
== END 2025-04-16 08:55 | disposition short-term general hospital (02) ==
PROVIDERS: Emergency Provider Nurse Practitioner; PCP Nurse Practitioner Adult Health
DX: E11.621 Type 2 diabetes mellitus with foot ulcer (principal); L97.529 Non-pressure chronic ulcer of other part of left foot with unspecified severity; Z79.84 Long term (current) use of oral hypoglycemic drugs; Z79.85 Long-term (current) use of injectable non-insulin antidiabetic drugs; I10 Essential (primary) hypertension; E78.00 Pure hypercholesterolemia, unspecified
CPT/HCPCS: 82948; 99212; G0463